=== PATIENT | female | born 1995 | race Caucasian/White ===

== ENCOUNTER → 2018-08-04 15:37 | Emergency (ER) | payer BC ==
[~2018-08-04 15:37] MED LIST: Ketorolac INJ* 30 MG/ML 1 ML VIAL IM ONE; Lidocaine PATCH 5%* 1 PATCH TRANSDERM ONE; Methocarbamol TAB* 500 MG PO ONE
--- NOTE | 2018-08-04 17:13 | ED ---
Neck Pain - HPI Summary HPI Summary: 22-year-old female presents with neck pain today. She said it started when she was getting a snack. It is only on the left side of her neck. Hurts mostly when she turns her head to the left. She has limited range of motion due to pain. States that it is sharp. She denies any numbness or tingling. No weakness. No fevers. She is right-handed. Never had this before. Has no medical conditions. Tried some ibuprofen without relief. - History of Current Complaint Chief Complaint: EDNeckComplaint Stated Complaint: NECK PAIN Time Seen by Provider: 08/04/18 16:58 Pain Intensity: 8 - Allergies/Home Medications Allergies/Adverse Reactions: Allergies Allergy/AdvReac Type Severity Reaction Status Date / Time Sulfa (Sulfonamide Allergy Unknown Verified 08/04/18 15:41 Antibiotics) Reaction Details PMH/Surg Hx/FS Hx/Imm Hx Endocrine/Hematology History: Denies: Hx Anticoagulant Therapy Respiratory History: Denies: Hx Asthma Infectious Disease History: No Infectious Disease History: Denies: Traveled Outside the [place] in Last 30 Days - Family History Known Family History: Negative: Diabetes - Social History Substance Use Type: Reports: None Smoking Status (MU): Never Smoked Tobacco Review of Systems Negative: Fever Negative: Chest Pain Negative: Shortness Of Breath Positive: Myalgia - neck pain All Other Systems Reviewed And Are Negative: Yes Physical Exam Triage Information Reviewed: Yes Vital Signs On Initial Exam: Initial Vitals Temp Pulse Resp BP Pulse Ox 98.1 F 77 18 138/76 98 08/04/18 15:38 08/04/18 15:38 08/04/18 15:38 08/04/18 15:38 08/04/18 15:38 Vital Signs Reviewed: Yes Appearance: Positive: Well-Appearing Skin: Positive: Warm, Dry Head/Face: Positive: Normal Head/Face Inspection Eyes: Positive: Normal, Conjunctiva Clear ENT: Positive: Pharynx normal Respiratory/Lung Sounds: Positive: Clear to Auscultation, Breath Sounds Present Cardiovascular: Positive: Normal, RRR Musculoskeletal: Positive: Other - tenderness on left side of neck, no midline tenderness, limited ROM to left, good pulses, 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 - Radiology neck Radiology Interpretation Completed By: ED Physician Summary of Radiographic Findings: straightening Neck Course/Dx - Course Course Of Treatment: 22-year-old female presents with neck pain today. She said it started when she was getting a snack. It is only on the left side of her neck. Hurts mostly when she turns her head to the left. She has limited range of motion due to pain. States that it is sharp. She denies any numbness or tingling. No weakness. No fevers. She is right-handed. Never had this before. Has no medical conditions. Tried some ibuprofen without relief. on exam has tenderness left side of neck. no midline tenderness. cervical xray show straightening. will discharge with muscle relaxer. patient understand and agrees with plan. - Diagnoses Differential Dx/HQI/PQRI: Positive: Arthritis, Dystonia, Torticollis Provider Diagnoses: Neck pain Discharge - Sign-Out/Discharge Documenting (check all that apply): Patient Departure - Discharge Plan Condition: Good Disposition: HOME Prescriptions: Methocarbamol TAB* [Robaxin 500 MG TAB*] 750 mg PO TID PRN #12 tab PRN Reason: Pain Patient Education Materials: Cervical Strain (ED) Forms: *School Release Referrals: No Primary Care Phys,NOPCP [Primary Care Provider] - Additional Instructions: Take muscle relaxers three times a day Use ibuprofen or Tylenol for pain every 6 hours ice/heat area, move as much as possible Follow up with primary within 5 days Return to ED if develop any new or worsening symptoms - Billing Disposition and Condition Condition: GOOD Disposition: Home
--- NOTE | 2018-08-04 17:25 | RAD ---
HISTORY: neck pain COMPARISONS: None VIEWS: 5 , Frontal, lateral, open-mouth odontoid, and bilateral oblique views of the cervical spine. FINDINGS: The cervical spine is visualized from the skull base through T1 . ALIGNMENT: There is straightening of the normal cervical lordosis. There is mild leftward convex curvature of the spine. VERTEBRAL BODIES: The odontoid process is intact. The atlantoaxial intervals are symmetric. JOINTS: There is no subluxation or dislocation. The facet joints are unremarkable. There is no osseous neural foraminal narrowing on the oblique views. INTERVERTEBRAL DISCS: The intervertebral disc heights are normal. SOFT TISSUE: The prevertebral soft tissues are normal. OTHER: The skull base is normal. The lung apices are clear. IMPRESSION: STRAIGHTENING OF THE CERVICAL LORDOSIS.
[2018-08-04 18:08] VITALS: BP 130/87
== END | disposition home or self-care (01) ==
LOC: ED 15:37
DX: M54.2 Cervicalgia (principal); Z88.2 Allergy status to sulfonamides
CPT/HCPCS: 72050; 96372; 99282; A9270-GY; J1885